=== PATIENT | male | born 1940 | race Caucasian/White ===

== ENCOUNTER → 2017-12-26 | Outpatient (CLI) | payer MEDICARE, OTHER | LOC: M RAD 13:14 | DX: N18.3 Chronic kidney disease, stage 3 (moderate) (principal); I12.9 Hypertensive chronic kidney disease with stage 1 through stage 4 chronic kidney disease, or unspecified chronic kidney disease; N32.89 Other specified disorders of bladder | CPT/HCPCS: 76775 ==

== ENCOUNTER → 2024-02-14 | Outpatient (CLI) | payer MEDICARE, BC | LOC: M WUC 13:29 | PROVIDERS: ATTEND Internal Medicine | DX: I25.10 Atherosclerotic heart disease of native coronary artery without angina pectoris (principal); J90 Pleural effusion, not elsewhere classified; J98.11 Atelectasis ==

== ENCOUNTER → 2024-02-29 | Outpatient (CLI) | payer MEDICARE, BC ==
[2024-02-29 16:50] LABS: ALBUMIN 3.5 G/DL (3.2-5.2); ALKALINE PHOSPHATASE 101 U/L (46-116); ALT/SGPT 15 U/L (7.0-40); AST/SGOT 9 U/L (<34); BILIRUBIN,TOTAL 0.5 MG/DL (0.3-1.2); BLOOD UREA NITROGEN 18 MG/DL (9-23); CALCIUM LEVEL 9.1 MG/DL (8.3-10.6); CARBON DIOXIDE LEVEL 30 MMOL/L (20-31); CHLORIDE LEVEL 101 MMOL/L (98-107); CREATININE FOR GFR 0.97 MG/DL (0.70-1.30); GLOMERULAR FILTRATION RATE > 60.0 (>35); GLUCOSE, FASTING 105 MG/DL (74-106); POTASSIUM SERUM 5.2 MMOL/L (3.5-5.1); SODIUM LEVEL 137 MMOL/L (136-145); TOTAL PROTEIN 7.7 G/DL (5.7-8.2)
== END ==
LOC: M WUC 14:42
PROVIDERS: ATTEND Internal Medicine
DX: J90 Pleural effusion, not elsewhere classified (principal)

== ENCOUNTER → 2024-11-04 | Outpatient (CLI) | payer MEDICARE, BC | LOC: M PLAIMG 10:51 | PROVIDERS: ATTEND Internal Medicine Critical Care Medicine | DX: J44.9 Chronic obstructive pulmonary disease, unspecified (principal); J90 Pleural effusion, not elsewhere classified; J98.11 Atelectasis; J47.9 Bronchiectasis, uncomplicated; I25.10 Atherosclerotic heart disease of native coronary artery without angina pectoris; I70.0 Atherosclerosis of aorta ==

== ENCOUNTER 2024-12-12 09:24 | Observation (INO) | payer MEDICARE, BC ==
[~2024-12-12] VITALS: Ht 182.9 cm; Wt 88.5 kg
[2024-12-12 10:14] LABS: BASO # 0.1 10^3/uL (0.0-0.2); EOS # 0.1 10^3/uL (0.0-0.5); EOS % 1.3 % (0.0-3.0); HEMATOCRIT 40.6 % (42.0-52.0); LYMPH # 1.8 10^3/uL (1.5-5.0); LYMPH % 16.2 % (24.0-44.0); MEAN CORPUSCULAR HEMOGLOBIN 28.3 pg (27.0-33.0); MEAN CORPUSCULAR VOLUME 88.5 fl (80.0-96.0); MONO # 0.8 10^3/uL (0.0-0.8); NEUTROPHILS # 8.1 10^3/uL (1.5-8.5); NEUTROPHILS % 74.2 % (36.0-66.0); PLATELET COUNT, AUTOMATED 333 10^3/uL (150-450); RED BLOOD COUNT 4.59 10^6/uL (4.30-6.10); WHITE BLOOD COUNT 10.9 10^3/uL (4.0-10.0)
[2024-12-12 10:29] LABS: INR 0.96; PARTIAL THROMBOPLASTIN TIME 39.6 SECONDS (24.8-34.2); PROTHROMBIN TIME 13.1 SECONDS (12.5-14.5)
[2024-12-12] MEDS: ACETAMINOPHEN 325 MG TAB PO PRN (10:34)
[2024-12-12 10:37] LABS: PH BODY FLUID 7.518 UNITS (NOT ESTABLISHED); SOURCE, BODY FLUID pH PLEURAL
[2024-12-12 10:41] LABS: ALBUMIN 3.4 G/DL (3.2-5.2); BILIRUBIN,TOTAL 0.6 MG/DL (0.3-1.2); CALCIUM LEVEL 9.2 MG/DL (8.3-10.6); CREATININE FOR GFR 0.87 MG/DL (0.70-1.30); GLOMERULAR FILTRATION RATE 85.6 (>35); POTASSIUM SERUM 4.6 MMOL/L (3.5-5.1); TOTAL PROTEIN 7.4 G/DL (5.7-8.2)
[2024-12-12 10:54] LABS: APPEARANCE, BODY FLUID CLOUDY (CLEAR); PLEURAL FL COLOR RED (COLORLESS); SOURCE, BODY FLUID PLEURAL
[2024-12-12 11:10] LABS: SOURCE, BODY FLUID GLUCOSE PLEURAL
[2024-12-12] MEDS: NS (Normal Saline) 0.9% 1,000 ML IV ONE (11:10)
[2024-12-12 11:11] LABS: SOURCE, BODY FLUID TOT PROTEIN PLEURAL; TOTAL PROTEIN, BODY FLUID 3.3 G/DL (NOT ESTABLISHED)
[2024-12-12 11:12] LABS: AMYLASE, BODY FLUID 23 U/L (NOT ESTABLISHED); LDH, BODY FLUID 214 U/L (NOT ESTABLISHED); SOURCE, BODY FLUID AMYLASE PLEURAL; SOURCE, BODY FLUID LDH PLEURAL
[2024-12-12] MEDS: oxyCODONE 5MG TAB PO ONE (12:12)
[2024-12-12] MEDS ORDERED: oxyCODONE 5MG TAB PO PRN (13:20)
[2024-12-12 14:00] VITALS: BP 97/50; TEMP 96.7; O2SAT 96
[2024-12-12] MEDS: LR 1,000 ML IV SCH (14:24)
[2024-12-12] MEDS ORDERED: METO25TA4 PO (15:47)
[2024-12-12] MEDS ORDERED: FINA5TAB2 PO (15:47)
[2024-12-12] MEDS ORDERED: FURO40TA2 PO (15:47)
[2024-12-12] MEDS ORDERED: FLUT1BLS8 INH (15:47)
[2024-12-12] MEDS ORDERED: ATOR40TA75 PO (15:47)
[2024-12-12] MEDS ORDERED: METF-839 PO (15:47)
[2024-12-12] MEDS ORDERED: HOME MED LIST COMPLETE! XX SCH (15:50)
[2024-12-12 15:59] VITALS: BP 101/60; TEMP 96.4; O2SAT 97
[2024-12-12] MEDS: ACETAMINOPHEN 500 MG TAB PO PRN (17:17)
[2024-12-12] MEDS: INSULIN LISPRO (NovoLOG) PER UNIT SC SCH ×2 (17:30→20:52)
[2024-12-12] MEDS ORDERED: DEXTROSE 50% 50ML SYRINGE IV PRN (17:40)
[2024-12-12] MEDS ORDERED: GLUCAGON INJ 1MG VIAL SC PRN (17:40)
[2024-12-12] MEDS ORDERED: GLUCOSE 4 GM CHEW PO PRN (17:40)
[2024-12-12] MEDS: FLUTICASONE HFA 220 MCG 12 GM INHALER INH SCH (20:00)
[2024-12-12 20:02] VITALS: BP 97/54; TEMP 98.4; O2SAT 98
[2024-12-13 00:05] VITALS: BP 122/69; TEMP 97.9; O2SAT 99
[2024-12-13 03:19] VITALS: BP 122/74; TEMP 98.1; O2SAT 98
[2024-12-13 07:22] LABS: HEMATOCRIT 36.7 % (42.0-52.0); HEMOGLOBIN 11.8 g/dl (13.5-17.5); MEAN CORPUSCULAR HEMOGLOBIN 28.4 pg (27.0-33.0); MEAN CORPUSCULAR HGB CONC 32.2 g/dl (32.0-36.5); MEAN CORPUSCULAR VOLUME 88.2 fl (80.0-96.0); PLATELET COUNT, AUTOMATED 278 10^3/uL (150-450); RED BLOOD COUNT 4.16 10^6/uL (4.30-6.10); WHITE BLOOD COUNT 9.6 10^3/uL (4.0-10.0)
[2024-12-13 07:42] VITALS: BP 108/57; TEMP 98.6; O2SAT 99
[2024-12-13 08:00] LABS: CALCIUM LEVEL 8.7 MG/DL (8.3-10.6); CREATININE FOR GFR 0.79 MG/DL (0.70-1.30); GLOMERULAR FILTRATION RATE 88.2 (>35); POTASSIUM SERUM 4.9 MMOL/L (3.5-5.1)
[2024-12-13] MEDS: ATORVASTATIN 20 MG TAB PO SCH (08:47)
[2024-12-13] MEDS ORDERED: HOLTER MONITOR XX (09:59)
[2024-12-13] MEDS ORDERED: AMLO25TA PO (09:59)
[2024-12-13 11:47] VITALS: O2SAT 97
== END 2024-12-13 12:22 | disposition home or self-care (01) ==
LOC: M IRPRO 09:24 → M IRINP 09:25 → M PCU 14:01
PROVIDERS: ADMIT Student in an Organized Health Care Education/Training Program; ATTEND Internal Medicine Critical Care Medicine
DX: J90 Pleural effusion, not elsewhere classified (principal); H25.89 Other age-related cataract; J93.83 Other pneumothorax; I25.10 Atherosclerotic heart disease of native coronary artery without angina pectoris; J44.9 Chronic obstructive pulmonary disease, unspecified; I10 Essential (primary) hypertension; E78.5 Hyperlipidemia, unspecified; E11.9 Type 2 diabetes mellitus without complications; I95.9 Hypotension, unspecified; Z79.84 Long term (current) use of oral hypoglycemic drugs; Z79.899 Other long term (current) drug therapy; Z88.2 Allergy status to sulfonamides
CPT/HCPCS: 32555; 36415; 71045; 80048; 80053; 82150; 82945; 83615; 83735; 83986; 84157; 85025; 85027; 85610; 85730; 87070; 87075; 87102; 87116; 87205; 87206; 88108; 88305; 88313; 89051; 93005; 94640; 96360; 96361; 97161; G0378

== ENCOUNTER → 2024-12-13 | Outpatient (CLI) | payer MEDICARE, BC ==
[~2024-12-13] MED LIST: AMLO25TA PO; ATOR40TA75 PO; FINA5TAB2 PO; FLUT1BLS8 INH; FURO40TA2 PO; HOLTER MONITOR XX; METF-839 PO; METO25TA4 PO
== END ==
LOC: M EKG 12:34
PROVIDERS: ATTEND Obstetrics & Gynecology
DX: I44.1 Atrioventricular block, second degree (principal)